=== PATIENT | male | born 1995 | race Caucasian/White ===

== ENCOUNTER 2021-12-16 15:48 | Emergency (ER) | payer OTHER ==
[~2021-12-16] VITALS: Ht 185.4 cm; Wt 102.0 kg
[2021-12-16 16:13] VITALS: BP 179/113
[2021-12-16] MEDS ORDERED: KETOROLAC 60 MG/2 ML VIAL. IM ONE (16:15)
[2021-12-16] MEDS ORDERED: ORPHENADRINE CITRATE 60 MG/2 ML VIAL. IM ONE (16:15)
--- NOTE | 2021-12-16 16:23 | PHYS DOC ---
Past History Past Surgical History: No Surgical History (KIRSTEN BLEDSOE APRN) Alcohol Use: Occasionally (KIRSTEN BLEDSOE APRN) General Adult EDM: Chief Complaint: BACK PAIN OR INJURY HPI: HPI: Patient is a 26-year-old male who presents to the emergency department for right-sided low back pain that started on Wednesday. Patient reports that the pain has gotten worse over time. He rates his pain 7 out of 10. It is worse with moving and sitting. He reports that he has degenerative disc disease and has chronic back pain which he has been seeing a chiropractor for. Patient denies any new injuries. He reports that he took Tylenol prior to arrival for his pain. He denies any loss of bowel or bladder, saddle anesthesias, fevers. Patient is able to bear weight and ambulate. (KIRSTEN BLEDSOE APRN) Review of Systems: Review of Systems: Constitutional: See HPI : See HPI Musculoskeletal: HPI Neurologic: See HPI (KIRSTEN BLEDSOE APRN) Current Medications: Current Meds: Current Medications Medications (Trade) Dose Ordered Sig/Fidelia Start Time Stop Time Status Last Admin Dose Admin Ketorolac Tromethamine (Toradol Im) 60 mg 1X ONCE 12/16/21 16:15 12/16/21 16:16 DC Orphenadrine Citrate (Norflex) 60 mg 1X ONCE 12/16/21 16:15 12/16/21 16:16 DC (KIRSTEN BLEDSOE APRN) Allergies: Allergies: Allergies Coded Allergies Type Severity Reaction Last Updated Verified No Known Drug Allergies 12/16/21 No (KIRSTEN BLEDSOE APRN) Physical Exam: PE: Constitutional: Well developed, well nourished, no acute distress, non-toxic appearance. [] HENT: Normocephalic, atraumatic, bilateral external ears normal, oropharynx moist, no oral exudates, nose normal. [] Eyes: PERRL, EOMI, conjunctiva normal, no discharge. [] Neck: Normal range of motion, no spinal tenderness, supple, step-offs or deformities, no stridor. [] Cardiovascular: Normal peripheral perfusion Lungs & Thorax: Normal work of breathing, no tachypnea Abdomen: Soft and flat Skin: Warm, dry, no erythema, no rash. [] Back: Right-sided paraspinal lumbar tenderness with palpation, no deformities decreased range of motion due to pain Extremities: No tenderness, no cyanosis, no clubbing, ROM intact, no edema. [] Neurologic: Alert and oriented X 3, normal motor function, normal sensory function, no focal deficits noted. [] Psychologic: Affect normal, judgement normal, mood normal. [] (KIRSTEN BLEDSOE APRN) Current Patient Data: Vital Signs: Vital Signs Date Time Temp Pulse Resp B/P (MAP) Pulse Ox O2 Delivery O2 Flow Rate FiO2 12/16/21 16:13 98.0 105 16 179/113 (135) 99 Room Air (KIRSTEN BLEDSOE APRN) EKG: EKG: [] (KIRSTEN BLEDSOE APRN) Radiology/Procedures: Radiology/Procedures: []PROCEDURE: CT LUMBAR SPINE WO CONTRAST INDICATION: Reason: back pain / Spl. Instructions: / History: . COMPARISON: None. TECHNIQUE: Axial CT images obtained through the lumbar spine. One or more of the following individualized dose reduction techniques were utilized for this examination: 1. Automated exposure control; 2. Adjustment of the mA and/or kV according to patient size; 3. Use of iterative reconstruction technique. FINDINGS: No evidence of significant malalignment. Schmorl's node formation at multiple levels. No definite acute fracture is seen. Mild scoliotic curvature the spine. Degenerative changes are seen at multiple levels with disc protrusions and osteophyte formation as well as facet hypertrophy. This includes: L1-2: Facet and ligamentum flavum hypertrophy with a broad-based posterior disc protrusion with mild mass effect on the anterior aspect of the thecal sac and lateral recesses. L2-3: Posterior disc protrusion with ligamentum flavum and facet hypertrophy. Mild mass effect on the anterior aspect of the thecal sac and lateral recesses. L3-4: Broad-based posterior disc protrusion with ligamentum flavum and facet hypertrophy. Mild trefoil narrowing of the central canal and narrowing of the lateral recesses. L4-5: Ligamentum flavum and facet hypertrophy. Disc protrusion and osteophyte formation at the vertebral body endplates with moderate trefoil narrowing of central canal and lateral recess. Mild narrowing of the neural foramina inferiorly. L5-S1: Facet hypertrophy with disc osteophyte complex. Mild mass effect on anterior aspect of the thecal sac. Scattered prominent lymph nodes in the partially visualized abdomen. IMPRESSION: * No acute fracture or dislocation. * Degenerative changes the spine with disc protrusions and osteophyte formation at vertebral body endplates as well as ligamentum flavum and facet hypertrophy. Electronically signed by: Rimma Broussard MD (12/16/2021 5:03 PM) [id number] DICTATED AND SIGNED BY: RIMMA BROUSSARD MD DATE: 12/16/21 1650 CC: KIRSTEN BLEDSOE APRN; NON,STAFF ~MTH0 0 (KIRSTEN BLEDSOE APRN) Heart Score: C/O Chest Pain: N/A Risk Factors: Risk Factors: DM, Current or recent (<one month) smoker, HTN, HLP, family history of CAD, obesity. Risk Scores: Score 0 - 3: 2.5% MACE over next 6 weeks - Discharge Home Score 4 - 6: 20.3% MACE over next 6 weeks - Admit for Clinical Observation Score 7 - 10: 72.7% MACE over next 6 weeks - Early Invasive Strategies (KIRSTEN BLEDSOE APRN) Course & Med Decision Making: Course & Med Decision Making Pertinent Labs and Imaging studies reviewed. (See chart for details) [] Patient presents to the emergency department today for right-sided lumbar tenderness that radiates down his right leg. Patient has chronic back pain from previous injury and was diagnosed with degenerative disc disease. Imaging performed of patient's lumbar spine. Patient treated with Toradol and orphenadrine. Patient does not have any cauda equina symptoms. He is neurovascularly intact. He is able to bear weight and ambulate. Patient CT scan of his lumbar spine showed degenerative changes and disc protrusions as well as osteophyte formation but no acute fractures. Patient has muscle relaxers at home. I advised him to take these as needed also take anti- inflammatory medications. I offered patient pain medication for home which she declined. She reports improvement in his pain. Patient is able to sit down at this point. I discussed with patient all findings and diagnostic testing as well as the need to follow-up with PCP for further evaluation and treatment or return to the ER if any new or worsening symptoms. Strict return precautions were also discussed at length. Patient voiced understanding and agreement with the plan. Patient is hemodynamically stable at the time of disposition. (KIRSTEN BLEDSOE APRN) Dragon Disclaimer: Dragon Disclaimer: This electronic medical record was generated, in whole or in part, using a voice recognition dictation system. (KIRSTEN BLEDSOE APRN) Attending Co-Sign The patient was seen and interviewed as well as examined at the bedside. The chart was reviewed. The case was discussed. Agree with the plan of care. (TERRY HUERTAS DO) Departure Departure: Impression: Primary Impression: Back pain Qualified Codes: M54.41 - Lumbago with sciatica, right side Disposition: HOME / SELF CARE / HOMELESS Condition: GOOD Referrals: NON,STAFF (PCP) Patient Instructions: Back Pain, Adult Additional Instructions: You were seen in the emergency department today for back pain. We discussed, the CT scan of your lumbar spine showed degenerative changes. This was treated with an anti-inflammatory and muscle relaxer. At home you can continue taking the muscle relaxer that was previously prescribed to you and take Tylenol and ibuprofen. Follow-up with your primary care provider tomorrow regarding your ER visit. Return to the emergency department if you develop worsening of your back pain, inability to bear weight or walk, loss of bowel or bladder, loss of sensation or numbness or tingling in your groin or down your legs. KIRSTEN BLEDSOE APRN Dec 16, 2021 16:23 TERRY HUERTAS DO Dec 18, 2021 09:22
--- NOTE | 2021-12-16 17:06 | RAD ---
INDICATION: Reason: back pain / Spl. Instructions: / History: . COMPARISON: None. TECHNIQUE: Axial CT images obtained through the lumbar spine. One or more of the following individualized dose reduction techniques were utilized for this examinat ion: 1. Automated exposure control; 2. Adjustment of the mA and/or kV according to patient size; 3 . Use of iterative reconstruction technique. FINDINGS: No evidence of significant malalignment. Schmorl's node formation at multiple levels. No definite acute fracture is seen. Mild scoliotic curvature the spine. Degenerative changes are seen at multiple levels with disc protrusions and osteophyte formation as we ll as facet hypertrophy. This includes: L1-2: Facet and ligamentum flavum hypertrophy with a broad-based posterior disc protrusion with mild mass effect on the anterior aspect of the thecal sac and lateral recesses. L2-3: Posterior disc protrusion with ligamentum flavum and facet hypertrophy. Mild mass effect on the anterior aspect of the thecal sac and lateral recesses. L3-4: Broad-based posterior disc protrusion with ligamentum flavum and facet hypertrophy. Mild trefoi l narrowing of the central canal and narrowing of the lateral recesses. L4-5: Ligamentum flavum and facet hypertrophy. Disc protrusion and osteophyte formation at the verteb ral body endplates with moderate trefoil narrowing of central canal and lateral recess. Mild narrowin g of the neural foramina inferiorly. L5-S1: Facet hypertrophy with disc osteophyte complex. Mild mass effect on anterior aspect of the the kat[place] sac. Scattered prominent lymph nodes in the partially visualized abdomen. IMPRESSION: * No acute fracture or dislocation. * Degenerative changes the spine with disc protrusions and osteophyte formation at vertebral body en dplates as well as ligamentum flavum and facet hypertrophy. Electronically signed by: Ata Broussard MD (12/16/2021 5:03 PM) [id number]
== END 2021-12-16 17:24 | disposition home or self-care (01) ==
LOC: ER 15:48
DX: M54.41 Lumbago with sciatica, right side (principal); G89.29 Other chronic pain
CPT/HCPCS: 72131; 96372; 99284; J1885; J2360